=== PATIENT | male | born 1950 | race Caucasian/White ===

== ENCOUNTER 2023-03-01 07:30 | Inpatient (IN) | payer BC ==
[2023-03-01] MEDS ORDERED: Sodium Chloride 0.9% 500 ML IV STA (08:28)
[2023-03-01] MEDS ORDERED: Iopamidol 755 Mg/ML 100 ML Bottle IVPUSH ONE (08:47)
[2023-03-01] MEDS ORDERED: cefTRIAXone 2 GM Vial IVPUSH ONE (09:08)
[2023-03-01] MEDS ORDERED: Sodium Chloride 0.9% 1,000 ML IV STA (11:00)
[2023-03-01] MEDS ORDERED: Ondansetron 4 MG Tab.DIS PO PRN (11:00)
[2023-03-01] MEDS ORDERED: Ondansetron 4 MG/2 ML SDV IV PRN (11:00)
[2023-03-01] MEDS ORDERED: Acetaminophen 325 MG Tab PO PRN (11:00)
[2023-03-01] MEDS: Erythromycin Base 0.5% Ophth Oint 3.5 GM Tube EYEBOTH SCH ×2 (20:11→20:14)
[2023-03-01] MEDS: traZODone 50 MG Tab PO SCH (20:14)
[2023-03-01] MEDS: Brimonidine 0.2% Ophth Soln 5 ML Bottle EYEBOTH SCH (20:14)
[2023-03-01] MEDS: Simvastatin 20 MG Tab PO SCH (20:14)
[2023-03-01] MEDS: Insulin Glarg,Human.Rec.Analog 100 Unit/ML SUBCUT SCH (20:15)
[2023-03-01] MEDS: Tamsulosin 0.4 MG Cap.ER PO SCH (20:25)
[2023-03-02] MEDS: Erythromycin Base 0.5% Ophth Oint 3.5 GM Tube EYEBOTH SCH ×4 (08:00→20:21)
[2023-03-02] MEDS: Brimonidine 0.2% Ophth Soln 5 ML Bottle EYEBOTH SCH ×3 (09:24→20:20)
[2023-03-02] MEDS: cefTRIAXone 1 GM Vial IVPUSH SCH (09:32)
[2023-03-02] MEDS: Pantoprazole 40 MG Tab.CR PO SCH (09:33)
[2023-03-02] MEDS: Levothyroxine 50 MCG Tab PO SCH (09:33)
[2023-03-02] MEDS: Tamsulosin 0.4 MG Cap.ER PO SCH (09:33)
[2023-03-02] MEDS: Amiodarone 200 MG Tab PO SCH (09:33)
[2023-03-02] MEDS: amLODIPine 10 MG Tab PO SCH (09:34)
[2023-03-02] MEDS: Voriconazole 200 MG Tab PO SCH (09:53)
[2023-03-02] MEDS ORDERED: Sodium Chloride 0.9% 500 ML IV SCH (10:45)
[2023-03-02] MEDS: Insulin Glarg,Human.Rec.Analog 100 Unit/ML SUBCUT SCH (20:21)
[2023-03-02] MEDS: Simvastatin 20 MG Tab PO SCH (20:22)
[2023-03-02] MEDS: traZODone 50 MG Tab PO SCH (20:22)
[2023-03-02] MEDS: Latanoprost 0.005% Ophth Soln 2.5 ML Bottle EYEBOTH SCH (20:24)
[2023-03-03] MEDS: Brimonidine 0.2% Ophth Soln 5 ML Bottle EYEBOTH SCH ×3 (07:55→19:41)
[2023-03-03] MEDS: cefTRIAXone 1 GM Vial IVPUSH SCH (08:04)
[2023-03-03] MEDS: Erythromycin Base 0.5% Ophth Oint 3.5 GM Tube EYEBOTH SCH ×4 (08:11→19:40)
[2023-03-03] MEDS: Levothyroxine 50 MCG Tab PO SCH (08:11)
[2023-03-03] MEDS: Pantoprazole 40 MG Tab.CR PO SCH (08:11)
[2023-03-03] MEDS: Tamsulosin 0.4 MG Cap.ER PO SCH (08:11)
[2023-03-03] MEDS: amLODIPine 10 MG Tab PO SCH (08:12)
[2023-03-03] MEDS: Voriconazole 200 MG Tab PO SCH (08:16)
[2023-03-03] MEDS: traZODone 50 MG Tab PO SCH (19:41)
[2023-03-03] MEDS: Latanoprost 0.005% Ophth Soln 2.5 ML Bottle EYEBOTH SCH (19:41)
[2023-03-03] MEDS: Insulin Glarg,Human.Rec.Analog 100 Unit/ML SUBCUT SCH (19:46)
[2023-03-03] MEDS: Simvastatin 20 MG Tab PO SCH (19:53)
[2023-03-04] MEDS: Brimonidine 0.2% Ophth Soln 5 ML Bottle EYEBOTH SCH ×3 (07:50→19:50)
[2023-03-04] MEDS: Levothyroxine 50 MCG Tab PO SCH (07:54)
[2023-03-04] MEDS: Pantoprazole 40 MG Tab.CR PO SCH (07:55)
[2023-03-04] MEDS: Tamsulosin 0.4 MG Cap.ER PO SCH (07:55)
[2023-03-04] MEDS: amLODIPine 10 MG Tab PO SCH (07:55)
[2023-03-04] MEDS: cefTRIAXone 1 GM Vial IVPUSH SCH (07:56)
[2023-03-04] MEDS: Voriconazole 200 MG Tab PO SCH (08:04)
[2023-03-04] MEDS: Erythromycin Base 0.5% Ophth Oint 3.5 GM Tube EYEBOTH SCH ×4 (08:04→19:50)
[2023-03-04] MEDS: Amiodarone 200 MG Tab PO SCH (08:17)
[2023-03-04] MEDS: traZODone 50 MG Tab PO SCH ×2 (19:44→19:49)
[2023-03-04] MEDS: Simvastatin 20 MG Tab PO SCH ×2 (19:44→19:49)
[2023-03-04] MEDS: Insulin Glarg,Human.Rec.Analog 100 Unit/ML SUBCUT SCH (19:48)
[2023-03-04] MEDS: Latanoprost 0.005% Ophth Soln 2.5 ML Bottle EYEBOTH SCH (19:50)
[2023-03-05] MEDS: Tamsulosin 0.4 MG Cap.ER PO SCH (07:46)
[2023-03-05] MEDS: cefTRIAXone 1 GM Vial IVPUSH SCH (07:46)
[2023-03-05] MEDS: Pantoprazole 40 MG Tab.CR PO SCH (07:46)
[2023-03-05] MEDS: Levothyroxine 50 MCG Tab PO SCH (07:46)
[2023-03-05] MEDS: amLODIPine 10 MG Tab PO SCH (07:47)
[2023-03-05] MEDS: Voriconazole 200 MG Tab PO SCH (07:48)
[2023-03-05] MEDS: Erythromycin Base 0.5% Ophth Oint 3.5 GM Tube EYEBOTH SCH ×4 (07:48→20:42)
[2023-03-05] MEDS: Brimonidine 0.2% Ophth Soln 5 ML Bottle EYEBOTH SCH ×3 (07:49→19:50)
[2023-03-05] MEDS: Amiodarone 200 MG Tab PO SCH (09:24)
[2023-03-05] MEDS: Simvastatin 20 MG Tab PO SCH (19:56)
[2023-03-05] MEDS: traZODone 50 MG Tab PO SCH (19:56)
[2023-03-05] MEDS ORDERED: Latanoprost 0.005% Ophth Soln 2.5 ML Bottle EYEBOTH SCH (20:00)
[2023-03-05] MEDS: Insulin Glarg,Human.Rec.Analog 100 Unit/ML SUBCUT SCH (20:42)
[2023-03-06] MEDS: Pantoprazole 40 MG Tab.CR PO SCH (06:06)
[2023-03-06] MEDS: Levothyroxine 50 MCG Tab PO SCH (06:06)
[2023-03-06] MEDS: Tamsulosin 0.4 MG Cap.ER PO SCH (07:38)
[2023-03-06] MEDS: amLODIPine 10 MG Tab PO SCH (07:39)
[2023-03-06] MEDS: Erythromycin Base 0.5% Ophth Oint 3.5 GM Tube EYEBOTH SCH ×2 (07:40→12:54)
[2023-03-06] MEDS: Brimonidine 0.2% Ophth Soln 5 ML Bottle EYEBOTH SCH ×2 (07:40→15:14)
[2023-03-06] MEDS: cefTRIAXone 1 GM Vial IVPUSH SCH (07:40)
[2023-03-06] MEDS: Voriconazole 200 MG Tab PO SCH (07:43)
[2023-03-06] MEDS ORDERED: Docusate Sodium 100 MG Cap PO SCH (11:30)
[2023-03-06] MEDS ORDERED: Polyethylene Glycol 3350 Powder 17 GM Packet PO ONE (13:30)
== END 2023-03-06 16:50 | disposition critical access hospital (66) | DRG 463 ==
LOC: EDBD 07:30 → CC.ED 07:30 → CC.MS 09:22
PROVIDERS: ADMIT Nurse Practitioner; ATTEND Nurse Practitioner
DX: N13.6 Pyonephrosis (principal); N17.9 Acute kidney failure, unspecified; H10.9 Unspecified conjunctivitis; B96.89 Other specified bacterial agents as the cause of diseases classified elsewhere; R31.9 Hematuria, unspecified
CPT/HCPCS: 36415; 51702; 74176; 80048; 80053; 81001; 82550; 82947; 83690; 83735; 85025; 86140; 87086; 96360; 97110-GP; 97161-GP; 97530-GP; 99223; 99232; 99233; 99239; 99285-25; A9270-GY; C1758; J0696; J1815-GY; J3490; J7030; J7040

== ENCOUNTER 2024-01-01 09:34 | Inpatient (IN) | payer BC ==
[2024-01-01 10:04] LABS: APPEARANCE,URINE CLEAR (CLEAR); BILIRUBIN,URINE NEGATIVE (NEGATIVE); COLOR,URINE YELLOW (YELLOW); GLUCOSE,URINE NEGATIVE (NEGATIVE); KETONES,URINE NEGATIVE (NEGATIVE); LEUKOCYTE ESTERASE,URINE NEGATIVE (NEGATIVE); NITRITE,URINE NEGATIVE (NEGATIVE); OCCULT BLOOD,URINE NEGATIVE (NEGATIVE); PROTEIN,URINE 30 mg/dL (NEGATIVE); UROBILINOGEN,URINE 0.2 EU/dL (0.2-1.0)
[2024-01-01 10:08] LABS: BASOPHILS ABSOLUTE AUTO 0.07 10^3/uL (0.00-0.50); BASOPHILS PERCENT AUTO 0.9 % (0-1); EOSINOPHILS ABSOLUTE AUTO 0.13 10^3/uL (0.00-1.50); EOSINOPHILS PERCENT AUTO 1.7 % (0-6); HEMATOCRIT 37.1 % (42.0-52.0); HEMOGLOBIN 12.1 g/dL (14.0-18.0); IMMATURE GRAN ABSOLUTE AUTO 0.08 10^3/uL (0.00-0.49); IMMATURE GRAN PERCENT AUTO 1.1 % (0.0-4.9); LYMPHOCYTES ABSOLUTE AUTO 1.84 10^3/uL (0.60-5.00); LYMPHOCYTES PERCENT AUTO 24.4 % (24-44); MEAN CORPUSCULAR HEMOGLOBIN 30.3 pg (27.0-32.0); MEAN CORPUSCULAR HGB CONC 32.6 g/dL (32.0-36.0); MONOCYTES ABSOLUTE AUTO 0.46 10^3/uL (0.00-1.50); MONOCYTES PERCENT AUTO 6.1 % (0-10); NEUTROPHILS ABSOLUTE AUTO 4.95 x10^3/uL (1.80-8.00); NEUTROPHILS PERCENT AUTO 65.8 % (41-71); PLATELET COUNT,PLT 146 10^3/uL (150-400); RED BLOOD CELL COUNT 3.99 x10^6/uL (4.50-6.00); WHITE BLOOD CELL COUNT,WBC 7.5 10^3/uL (4.0-11.0)
[2024-01-01 10:12] LABS: BACTERIA,URINE FEW /HPF (NOT SEEN); EPITHELIAL CELLS,URINE FEW /HPF (NOT SEEN)
[2024-01-01 10:16] LABS: ALBUMIN 2.9 g/dL (3.4-5.0); BILIRUBIN TOTAL 0.5 mg/dL (0.0-1.0); C-REACTIVE PROTEIN 2.95 mg/dL (<=0.50); CALCIUM 8.3 mg/dL (8.4-10.1); EST CRCL DRUG DOSING (CG) 30.88 mL/min; POTASSIUM,K 4.6 mEq/L (3.5-5.0); PROTEIN TOTAL,TP 7.2 g/dL (6.4-8.2)
[2024-01-01] MEDS ORDERED: Sodium Chloride 0.9% 10 ML Syringe FLUSH PRN (12:28)
[2024-01-01] MEDS ORDERED: Acetaminophen 650 MG Supp RECTAL PRN (12:28)
[2024-01-01] MEDS ORDERED: Ondansetron 4 MG/2 ML SDV IV PRN (12:28)
[2024-01-01] MEDS ORDERED: Ondansetron 4 MG Tab.DIS PO PRN (12:28)
[2024-01-01] MEDS: cefTRIAXone 2 GM Vial IVPUSH SCH (13:01)
[2024-01-01] MEDS ORDERED: Triamcinolone Acetonide 0.1% Crm 15 GM Tube TOP PRN (14:25)
[2024-01-01] MEDS: Brimonidine 0.2% Ophth Soln 5 ML Bottle EYEBOTH SCH (19:46)
[2024-01-01] MEDS: Nystatin Crm 30 GM Tube TOP PRN (19:47)
[2024-01-01] MEDS: traZODone 50 MG Tab PO SCH (19:48)
[2024-01-01] MEDS: Latanoprost 0.005% Ophth Soln 2.5 ML Bottle EYEBOTH SCH (19:48)
[2024-01-01] MEDS: Acetaminophen 325 MG Tab PO PRN (19:48)
[2024-01-01] MEDS ORDERED: Voriconazole 200 MG Tab PO SCH (20:00)
[2024-01-02] MEDS: Pantoprazole 40 MG Tab.CR PO SCH (06:05)
[2024-01-02] MEDS: Levothyroxine 50 MCG Tab PO SCH (06:05)
[2024-01-02] MEDS: Sodium Chloride 0.9% 1,000 ML IV SCH ×2 (06:24→07:32)
[2024-01-02] MEDS: Escitalopram 10 MG Tab PO SCH (07:28)
[2024-01-02 07:29] LABS: BASOPHILS ABSOLUTE AUTO 0.05 10^3/uL (0.00-0.50); BASOPHILS PERCENT AUTO 0.6 % (0-1); EOSINOPHILS ABSOLUTE AUTO 0.15 10^3/uL (0.00-1.50); EOSINOPHILS PERCENT AUTO 1.7 % (0-6); HEMATOCRIT 33.4 % (42.0-52.0); HEMOGLOBIN 11.2 g/dL (14.0-18.0); IMMATURE GRAN PERCENT AUTO 1.1 % (0.0-4.9); LYMPHOCYTES ABSOLUTE AUTO 1.69 10^3/uL (0.60-5.00); LYMPHOCYTES PERCENT AUTO 18.8 % (24-44); MEAN CORPUSCULAR HEMOGLOBIN 31.1 pg (27.0-32.0); MEAN CORPUSCULAR HGB CONC 33.5 g/dL (32.0-36.0); MEAN CORPUSCULAR VOLUME 92.8 fL (83.0-97.0); MONOCYTES ABSOLUTE AUTO 0.52 10^3/uL (0.00-1.50); MONOCYTES PERCENT AUTO 5.8 % (0-10); PLATELET COUNT,PLT 142 10^3/uL (150-400)
[2024-01-02] MEDS: amLODIPine 10 MG Tab PO SCH (07:29)
[2024-01-02] MEDS: Enoxaparin 40 MG/0.4 ML Syringe SUBCUT SCH (07:33)
[2024-01-02] MEDS: Nystatin Crm 30 GM Tube TOP SCH (07:37)
[2024-01-02 07:46] LABS: ALBUMIN 2.6 g/dL (3.4-5.0); BILIRUBIN TOTAL 0.4 mg/dL (0.0-1.0); C-REACTIVE PROTEIN 3.26 mg/dL (<=0.50); CALCIUM 7.8 mg/dL (8.4-10.1); CREATININE 1.9 mg/dL (0.7-1.3); EST CRCL DRUG DOSING (CG) 30.15 mL/min; POTASSIUM,K 3.8 mEq/L (3.5-5.0); PROTEIN TOTAL,TP 6.8 g/dL (6.4-8.2)
[2024-01-02] MEDS: Tamsulosin 0.4 MG Cap.ER PO SCH (07:47)
[2024-01-02] MEDS: Amiodarone 200 MG Tab PO SCH (07:51)
[2024-01-02] MEDS: Piperacillin/Tazobactam 4.5 GM in Sodium Chloride 0.9% 100 ML IV SCH ×2 (16:48→20:59)
[2024-01-02] MEDS: Piperacillin/Tazobactam 4.5 GM in Sodium Chloride 0.9% 100 ML IV ONE ×2 (16:54→17:00)
[2024-01-02] MEDS: VORICONAZOLE 200 MG PO SCH ×2 (17:01→20:00)
[2024-01-02] MEDS: Simvastatin 20 MG Tab PO SCH (19:41)
[2024-01-03 07:29] LABS: BASOPHILS ABSOLUTE AUTO 0.07 10^3/uL (0.00-0.50); EOSINOPHILS ABSOLUTE AUTO 0.12 10^3/uL (0.00-1.50); EOSINOPHILS PERCENT AUTO 1.7 % (0-6); HEMATOCRIT 34.6 % (42.0-52.0); HEMOGLOBIN 11.3 g/dL (14.0-18.0); IMMATURE GRAN ABSOLUTE AUTO 0.08 10^3/uL (0.00-0.49); IMMATURE GRAN PERCENT AUTO 1.1 % (0.0-4.9); LYMPHOCYTES ABSOLUTE AUTO 1.68 10^3/uL (0.60-5.00); LYMPHOCYTES PERCENT AUTO 23.6 % (24-44); MEAN CORPUSCULAR HEMOGLOBIN 30.5 pg (27.0-32.0); MEAN CORPUSCULAR HGB CONC 32.7 g/dL (32.0-36.0); MEAN CORPUSCULAR VOLUME 93.3 fL (83.0-97.0); MONOCYTES ABSOLUTE AUTO 0.42 10^3/uL (0.00-1.50); MONOCYTES PERCENT AUTO 5.9 % (0-10); NEUTROPHILS ABSOLUTE AUTO 4.75 x10^3/uL (1.80-8.00); NEUTROPHILS PERCENT AUTO 66.7 % (41-71); PLATELET COUNT,PLT 136 10^3/uL (150-400); RED BLOOD CELL COUNT 3.71 x10^6/uL (4.50-6.00); WHITE BLOOD CELL COUNT,WBC 7.1 10^3/uL (4.0-11.0)
[2024-01-03 08:06] LABS: ALBUMIN 2.3 g/dL (3.4-5.0); BILIRUBIN TOTAL 0.5 mg/dL (0.0-1.0); C-REACTIVE PROTEIN 5.34 mg/dL (<=0.50); CALCIUM 7.6 mg/dL (8.4-10.1); CREATININE 1.7 mg/dL (0.7-1.3); EST CRCL DRUG DOSING (CG) 34.45 mL/min; POTASSIUM,K 3.8 mEq/L (3.5-5.0); PROTEIN TOTAL,TP 6.3 g/dL (6.4-8.2)
[2024-01-03] MEDS: Tuberculin, PPD 5 Units/0.1 ML 1 ML MDV IDERM ONE (14:36)
[2024-01-04 07:31] LABS: BASOPHILS ABSOLUTE AUTO 0.07 10^3/uL (0.00-0.50); EOSINOPHILS ABSOLUTE AUTO 0.27 10^3/uL (0.00-1.50); EOSINOPHILS PERCENT AUTO 3.7 % (0-6); HEMATOCRIT 32.9 % (42.0-52.0); HEMOGLOBIN 10.7 g/dL (14.0-18.0); IMMATURE GRAN ABSOLUTE AUTO 0.07 10^3/uL (0.00-0.49); MEAN CORPUSCULAR HEMOGLOBIN 30.5 pg (27.0-32.0); MEAN CORPUSCULAR HGB CONC 32.5 g/dL (32.0-36.0); MEAN CORPUSCULAR VOLUME 93.7 fL (83.0-97.0); MONOCYTES ABSOLUTE AUTO 0.51 10^3/uL (0.00-1.50); NEUTROPHILS ABSOLUTE AUTO 4.23 x10^3/uL (1.80-8.00); NEUTROPHILS PERCENT AUTO 58.3 % (41-71); PLATELET COUNT,PLT 134 10^3/uL (150-400); RED BLOOD CELL COUNT 3.51 x10^6/uL (4.50-6.00); WHITE BLOOD CELL COUNT,WBC 7.3 10^3/uL (4.0-11.0)
[2024-01-04 07:50] LABS: ALBUMIN 2.2 g/dL (3.4-5.0); BILIRUBIN TOTAL 0.4 mg/dL (0.0-1.0); C-REACTIVE PROTEIN 4.33 mg/dL (<=0.50); CALCIUM 7.4 mg/dL (8.4-10.1); CREATININE 1.6 mg/dL (0.7-1.3); EST CRCL DRUG DOSING (CG) 36.6 mL/min; POTASSIUM,K 3.5 mEq/L (3.5-5.0); PROTEIN TOTAL,TP 6.1 g/dL (6.4-8.2)
== END 2024-01-04 10:40 | DRG 383 ==
LOC: CC.ED 09:34 → CC.MS 11:00 → CC.ED 11:20 → CC.MS 12:25 → UNDOADMIN 12:25
PROVIDERS: ADMIT Nurse Practitioner Family; ATTEND Nurse Practitioner Family
DX: L03.116 Cellulitis of left lower limb (principal); L89.142 Pressure ulcer of left lower back, stage 2; G82.20 Paraplegia, unspecified; L08.9 Local infection of the skin and subcutaneous tissue, unspecified; L89.212 Pressure ulcer of right hip, stage 2; I48.91 Unspecified atrial fibrillation; E78.00 Pure hypercholesterolemia, unspecified; B96.5 Pseudomonas (aeruginosa) (mallei) (pseudomallei) as the cause of diseases classified elsewhere; K59.09 Other constipation; K21.9 Gastro-esophageal reflux disease without esophagitis; L03.317 Cellulitis of buttock; I12.9 Hypertensive chronic kidney disease with stage 1 through stage 4 chronic kidney disease, or unspecified chronic kidney disease; N18.30 Chronic kidney disease, stage 3 unspecified; E11.22 Type 2 diabetes mellitus with diabetic chronic kidney disease; Z79.4 Long term (current) use of insulin; Z98.890 Other specified postprocedural states; Z74.01 Bed confinement status; Z79.899 Other long term (current) drug therapy; Z79.890 Hormone replacement therapy; Z88.8 Allergy status to other drugs, medicaments and biological substances; Z95.810 Presence of automatic (implantable) cardiac defibrillator
CPT/HCPCS: 36415; 51702; 80053; 81001; 85025; 86140; 86580; 87040; 87070; 87077; 87186; 87205; 97110-GP; 97162-GP; 99285; A9270-GY; J0696; J1650; J2543; J3490; J7030; U0002